=== PATIENT | male | born 1990 | race American Indian/Alaskan Native ===

== ENCOUNTER 2020-05-29 12:54 | Emergency (ER) | payer MEDICARE ==
[2020-05-29] MEDS ORDERED: SODIUM CHLORIDE 0.9% 1000 ML 1,000 ML IV ONE (16:27)
[2020-05-29] MEDS ORDERED: MORPHINE 4 MG/1 ML INJ IV ONE (16:27)
[2020-05-29] MEDS ORDERED: KETOROLAC 30 MG/1 ML INJ IV ONE (16:27)
--- NOTE | 2020-05-29 16:30 | Emergency Department Report ---
HPI - General Time Seen by Provider: 05/29/20 16:07 - [facility] HPI: This is a 30-year-old -[place] male who presents to the emergency department via EMS from [place], where he is currently being treated for psychiatric conditions, with a complaint of pain to the bilateral upper and lower extremities and back that the patient says is a sickle cell pain crisis. This started this morning around 9 AM. He has not taken anything for symptoms prior to presentation. The pain seems to worsen with movement and palpation. No known alleviating factors. He denies any fever, chest pain, shortness of breath, abdominal pain, extremity swelling, rash or lesions. He has a psych iatric history of bipolar disorder and schizophrenia. He follows with Dr. Hess for hematology. No recent travel. ED Review of Systems ROS: Stated complaint: SICKLE CELL Other details as noted in HPI Comment: All other systems reviewed and negative Constitutional: denies: chills, fever Eyes: denies: eye pain, vision change ENT: denies: ear pain, throat pain Respiratory: denies: cough, shortness of breath Cardiovascular: denies: chest pain, palpitations Gastrointestinal: denies: abdominal pain, vomiting Genitourinary: denies: dysuria, discharge Musculoskeletal: back pain, arthralgia, myalgia. denies: joint swelling Skin: denies: rash, lesions Neurological: denies: headache, numbness Physical Exam - Physical Exam Physical Exam: GENERAL: The patient is well-developed well-nourished. HENT: Normocephalic. Atraumatic. Patient has moist mucous membranes. EYES: Extraocular motions are intact. NECK: Supple. Trachea is midline. CHEST/LUNGS: Clear to auscultation. There is no respiratory distress noted. HEART/CARDIOVASCULAR: Regular. There is no tachycardia. There is no murmur. ABDOMEN: Abdomen is soft, nontender. Patient has normal bowel sounds. SKIN: Skin is warm and dry. NEURO: The patient is awake, alert, and oriented. The patient is cooperative. The patient has no focal neurologic deficits. Normal speech. MUSCULOSKELETAL: There is no tenderness or deformity. There is no limitation range of motion. Radial pulse +2/4 and capillary refill less than 2 seconds to the bilateral upper extremities. BACK: No midline thoracic or lumbar tenderness to palpation. There is reproducible bilateral paraspinal lumbar and lower thoracic back pain to palpation. ED Course - Reevaluation(s) Reevaluation #1: 05/29/20 20:17 Lab Results 05/29/20 05/29/20 Range/Units 16:43 16:43 WBC 10.7 (4.5-11.0) K/mm3 RBC 2.52 L (3.65-5.03) M/mm3 Hgb 9.2 L (11.8-15.2) gm/dl Hct 25.4 L (35.5-45.6) % MCV 101 H (84-94) fl MCH 36 H (28-32) pg MCHC 36 H (32-34) % RDW 21.9 H (13.2-15.2) % Plt Count 211 (140-440) K/mm3 Lymph % (Auto) 32.6 (13.4-35.0) % [place] % (Auto) 8.4 H (0.0-7.3) % Eos % (Auto) 0.7 (0.0-4.3) % Baso % (Auto) 0.7 (0.0-1.8) % Lymph # (Auto) 3.5 (1.2-5.4) K/mm3 [place] # (Auto) 0.9 H (0.0-0.8) K/mm3 Eos # (Auto) 0.1 (0.0-0.4) K/mm3 Baso # (Auto) 0.1 (0.0-0.1) K/mm3 Seg Neutrophils % 57.6 (40.0-70.0) % Seg Neutrophils # 6.1 (1.8-7.7) K/mm3 Percent Retic 9.28 H (0.78-2.58) % Sodium 138 (137-145) mmol/L Potassium 3.8 (3.6-5.0) mmol/L Chloride 106.0 (98-107) mmol/L Carbon Dioxide 24 (22-30) mmol/L Anion Gap 12 mmol/L BUN 8 L (9-20) mg/dL Creatinine 0.5 L (0.8-1.3) mg/dL Estimated GFR > 60 ml/min BUN/Creatinine Ratio 16 % Glucose 99 (75-100) mg/dL Calcium 8.9 (8.4-10.2) mg/dL ED Medical Decision Making - Lab Data Result diagrams: 05/29/20 16:43 05/29/20 16:43 - Medical Decision Making This patient presents to the emergency department with a 1 day history of bilateral upper and lower extremity pain, as well as back pain, that he feels is consistent with previous sickle cell pain crisis. There is some reproducible tenderness to palpation but no obvious deformities. There is no joint or extremity swelling, rash or lesion. The patient has no complaints of chest pain, shortness of breath, fever. Vital signs have been reassuring throughout his ED course. Labs have been mostly unremarkable except for some anemia consistent with his sickle cell anemia history, but it is not at a level that requires transfusion. There is also an elevated reticulocyte count. Patient was given some IV fluid resuscitation and multiple doses of IV analgesia with improvement of his discomfort. Patient has been reevaluated multiple times over multiple hours and has repeated the been seen resting comfortably, in no acute distress. He will be discharged back to his psychiatric facility and has been instructed to follow-up with hematology as soon as he is done at [facility] [place]. He will return to the emergency department with any worsening of his symptoms or with any acute distress. Critical Care Time: No Critical care attestation.: If time is entered above; I have spent that time in minutes in the direct care of this critically ill patient, excluding procedure time. 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 Return to the emergency department with any worsening of your symptoms, new or concerning symptoms not addressed during this current emergency department visit, or with any acute distress. Referrals: PRIMARY MD GAYATRI [Primary Care Provider] - 3-5 Days Time of Disposition: 19:52
[2020-05-29 17:33] LABS: Blood Urea Nitrogen 8 mg/dL (9-20); Calcium 8.9 mg/dL (8.4-10.2); Hemolysis Index 17
[2020-05-29 17:46] LABS: Basophils # (Auto) 0.1 K/mm3 (0.0-0.1); Basophils % (Auto) 0.7 % (0.0-1.8); Eosinophils # (Auto) 0.1 K/mm3 (0.0-0.4); Eosinophils % (Auto) 0.7 % (0.0-4.3); Hematocrit 25.4 % (35.5-45.6); Hemoglobin 9.2 gm/dl (11.8-15.2); Lymphocytes # (Auto) 3.5 K/mm3 (1.2-5.4); Lymphocytes % (Auto) 32.6 % (13.4-35.0); Mean Corpuscular HGB Conc 36 % (32-34); Mean Corpuscular Volume 101 fl (84-94); Monocytes # (Auto) 0.9 K/mm3 (0.0-0.8); Monocytes % (Auto) 8.4 % (0.0-7.3); Red Blood Count 2.52 M/mm3 (3.65-5.03)
[2020-05-29 17:50] LABS: BUN/Creatinine Ratio 16
[2020-05-29 17:53] LABS: Platelet Count 211 K/mm3 (140-440); Red Cell Distribution Width 21.9 % (13.2-15.2)
[2020-05-29] MEDS ORDERED: HYDROmorphone 1 MG/1 ML INJ IV ONE ×2 (18:23→19:20)
[2020-05-29 20:23] VITALS: BP 120/69
== END 2020-05-29 23:43 | disposition home or self-care (01) ==
LOC: ED 12:54
DX: D57.1 Sickle-cell disease without crisis (principal); D57.00 Hb-SS disease with crisis, unspecified
CPT/HCPCS: 36415; 80048; 85025; 85045; 96361; 96374; 96375; 96376; 99284; J1170; J1885; J2270; J7030